=== PATIENT | female | born 1945 | race Caucasian/White ===

== ENCOUNTER 2021-07-26 20:26 | Emergency (ER) | payer MEDICARE ==
[~2021-07-26] VITALS: Ht 154.9 cm; Wt 63.5 kg
[2021-07-26 20:31] VITALS: BP_SYST 160
--- NOTE | 2021-07-26 20:31 | NUR ---
Placed in room 7 . Placed on secured entrance monitor, blood pressure machine and pulse oximeter. To gown for exam. Side rails up. Report given to ELIER BELTRAN.
--- NOTE | 2021-07-26 20:32 | NUR ---
Pt bib BLS with complaint of SOB X4days and dizziness. Pt reports chest pressure but denies pain. Pt took 2 puffs of her albuterol at home. Pt presenting with high blood pressure 173/87 other vital signs stable. Lung sounds rales bilaterally. Pt AAOX4 speaking full sentences resting in gurney with increased work of breathing at 30 RR. Pt attached to monitor resting in gurney.
--- NOTE | 2021-07-26 20:38 | NUR ---
# 20 gauge angiocath placed to LAC. Use of asceptic technique. Opsite placed over site. Blood return noted. Blood for lab drawn from site. Flushed with 10 cc of normal saline. No evidence of infiltration noted. Patient tolerated well.
--- NOTE | 2021-07-26 20:38 | NUR ---
Blood collected and sent to lab.
--- NOTE | 2021-07-26 20:47 | NUR ---
X-ray at bedside.
[2021-07-26 21:06] LABS: BASOPHILS % (AUTO) 0.3 % (0.0-2.0); EOSINOPHILS # (AUTO) 0.8 K/uL (0.0-0.4); EOSINOPHILS % (AUTO) 8.8 % (0.0-4.0); HEMATOCRIT 39.8 % (36-48); HEMOGLOBIN 13.6 g/dL (12.0-16.0); LYMPHOCYTES # (AUTO) 3.3 K/uL (1.0-5.5); LYMPHOCYTES % (AUTO) 38.6 % (20.5-51.5); MEAN CORPUSCULAR HEMOGLOBIN 31 pg (27-31); MEAN CORPUSCULAR HGB CONC 34 % (32-36); MEAN CORPUSCULAR VOLUME 91 fL (79.0-98.0); MONOCYTES # (AUTO) 0.7 K/uL (0.0-1.0); MONOCYTES % (AUTO) 7.9 % (1.7-9.3); NEUTROPHILS # (AUTO) 3.8 K/uL (1.8-7.7); NEUTROPHILS % (AUTO) 44.4 % (40.0-70.0); PLATELET COUNT (AUTO) 339 K/uL (130-430); RED BLOOD CELL COUNT(AUTO) 4.39 MIL/uL (4.2-6.2); RED CELL DISTRIBUTION WIDTH 13.2 % (9.0-15.0); WHITE BLOOD COUNT (AUTO) 8.6 K/uL (4.8-10.8)
[2021-07-26 21:08] LABS: ANION GAP 12 (5-15); CALCIUM 9.6 mg/dL (8.4-11.0); CHLORIDE 98 mmol/L (98-107); CREATININE 0.86 mg/dL (0.55-1.30); GLUCOSE 99 mg/dL (70-99); SODIUM SERUM 135 mmol/L (136-145); UREA NITROGEN, BLOOD 10 mg/dL (8-21)
[2021-07-26 21:22] LABS: ALANINE AMINOTRANSFERASE 22 U/L (12-78); ALBUMIN 3.8 g/dL (3.4-4.8); ASPARTATE AMINOTRANSFERASE 21 U/L (10-37); TOTAL BILIRUBIN 0.5 mg/dL (0.0-1.0)
[2021-07-26 21:27] LABS: POTASSIUM 2.9 mmol/L (3.5-5.1)
[2021-07-26] MEDS ORDERED: POTASSIUM CHLORIDE 20 MEQ/PKT PACKET PO ONE (21:45)
[2021-07-26] MEDS ORDERED: PRED20TA PO (21:50)
[2021-07-26] MEDS ORDERED: ZIT250 PO (21:50)
--- NOTE | 2021-07-26 21:50 | NUR ---
RT at bedside.
[2021-07-26] MEDS ORDERED: predniSONE 20 MG TABLET PO ONE (22:00)
[2021-07-26] MEDS ORDERED: ALBUTEROL SULFATE 0.083% 2.5 MG/3 ML VIAL.NEB INH ONE (22:00)
[2021-07-26] MEDS ORDERED: IPRATROPIUM BROM 0.5 MG/2.5 ML VIAL.NEB (ATROVENT) INH ONE (22:00)
[2021-07-26 22:23] VITALS: BP_SYST 140
--- NOTE | 2021-07-26 22:23 | NUR ---
Patient given written and verbal discharge instructions and verbalizes understanding. ER MD discussed with patient the results and treatment provided. Patient in stable condition. ID arm band removed. IV Removed. Rx of zithromax and prednisone given. Patient educated on pain management and to follow up with PMD. Pain Scale 0/10. Opportunity for questions provided and answered. Medication side effect fact sheet provided.
== END 2021-07-26 22:23 | disposition home or self-care (01) ==
LOC: SED 20:26
DX: J44.1 Chronic obstructive pulmonary disease with (acute) exacerbation (principal); Z79.899 Other long term (current) drug therapy; Z20.822 Contact with and (suspected) exposure to COVID-19
CPT/HCPCS: 36415; 71045; 80053; 83605; 83880; 84484; 85025; 87426; 93005; 94640; 99285; J7512; J7613

== ENCOUNTER 2021-10-28 10:44 | Emergency (ER) | payer OTHER, SELFPAY ==
[~2021-10-28] VITALS: Ht 154.9 cm; Wt 64.4 kg
[~2021-10-28 10:44] MED LIST: PRED20TA PO; ZIT250 PO
[2021-10-28 10:54] VITALS: BP_SYST 137
--- NOTE | 2021-10-28 11:30 | NUR ---
PLACED IN HALLWAY
--- NOTE | 2021-10-28 11:41 | NUR ---
DR. PRIETO EXAMINING PT
[2021-10-28] MEDS ORDERED: POLYTRIM LEFT EYE (11:49)
[2021-10-28] MEDS ORDERED: SULF1TAB48 PO (11:49)
--- NOTE | 2021-10-28 11:56 | NUR ---
Patient given written and verbal discharge instructions and verbalizes understanding. ER MD discussed with patient the results and treatment provided. Patient in stable condition. ID arm band removed. Rx of POLYXIN, SULFATE OPTHOLMIC, BACTRIM DS TABLET given. Patient educated on pain management and to follow up with PMD. Pain Scale 0/10. Opportunity for questions provided and answered. Medication side effect fact sheet provided.
== END 2021-10-28 11:58 | disposition home or self-care (01) ==
LOC: SED 10:44
DX: L03.213 Periorbital cellulitis (principal); H10.9 Unspecified conjunctivitis; J44.9 Chronic obstructive pulmonary disease, unspecified; Z88.1 Allergy status to other antibiotic agents; Z79.899 Other long term (current) drug therapy
CPT/HCPCS: 99283

== ENCOUNTER 2022-03-14 12:46 | Emergency (ER) | payer OTHER ==
[~2022-03-14] VITALS: Ht 152.4 cm; Wt 44.0 kg
[2022-03-14 12:46] VITALS: BP_SYST 175
[~2022-03-14 12:46] MED LIST changes: +POLYTRIM LEFT EYE; +SULF1TAB48 PO
--- NOTE | 2022-03-14 14:01 | NUR ---
Patient to ER bed 02 to gown for evaluation. Side rails up.
--- NOTE | 2022-03-14 14:10 | NUR ---
Assumed care of patient who brought herself to the ED c/o a lump on her right labia she noticed this morning. Lump is painful to touch. Patient states she felt swollen lyph nodes behind her left ear. Patient is A&Ox4, calm and cooperative.
--- NOTE | 2022-03-14 14:18 | NUR ---
Dr Maritnez evaluating patient at bedside
[2022-03-14] MEDS ORDERED: IBUP-1969 PO (14:23)
[2022-03-14] MEDS ORDERED: CEPH-548 PO (14:23)
[2022-03-14 14:41] VITALS: BP_SYST 158
--- NOTE | 2022-03-14 14:42 | NUR ---
Patient given written and verbal discharge instructions and verbalizes understanding. DR.SING SINDI CARLTON discussed with patient the results and treatment provided. Patient in stable condition. ID arm band removed. Rx of KEFLEX, IBUPROFEN given. Patient educated on pain management and to follow up with PMD. Pain Scale 0/10 Opportunity for questions provided and answered. Medication side effect fact sheet provided.
== END 2022-03-14 14:42 | disposition home or self-care (01) ==
LOC: SED 12:46
DX: N73.2 Unspecified parametritis and pelvic cellulitis (principal); L03.90 Cellulitis, unspecified; N90.89 Other specified noninflammatory disorders of vulva and perineum; Z88.1 Allergy status to other antibiotic agents; Z79.899 Other long term (current) drug therapy
CPT/HCPCS: 99284

== ENCOUNTER 2022-08-27 05:11 | Emergency (ER) | payer OTHER ==
[~2022-08-27] VITALS: Ht 152.4 cm; Wt 61.2 kg
[~2022-08-27 05:11] MED LIST changes: +CEPH-548 PO; +IBUP-1969 PO
[2022-08-27 06:10] VITALS: BP_SYST 145
--- NOTE | 2022-08-27 06:17 | NUR ---
Pt ambulaotry from home with c/o abd pain that radiates to her back. Abd pain started s/p eating potato soup x1 day ago. Pt reports dry heaving, but (-) Vomiting. Afebrile. Appears in no acute distress at this time. VSS.
--- NOTE | 2022-08-27 06:32 | NUR ---
MD Kaminski at bedside examining pt.
[2022-08-27] MEDS ORDERED: PANTOPRAZOLE SODIUM 40 MG/VIAL (PROTONIX) IVP ONE (06:45)
[2022-08-27] MEDS ORDERED: PROCHLORPERAZINE EDISYLATE 10 MG/2 ML VIAL IVP ONE (06:45)
[2022-08-27] MEDS ORDERED: ONDANSETRON HCL 4 MG/2 ML VIAL IVP ONE (06:45)
[2022-08-27] MEDS ORDERED: MAG HYDROX/AL HYDROX/SIMETH 30 ML, LIDOCAINE VISCOUS 2% 15ML (PO) 15 ML, DICYCLOMINE HC... PO ONE ×3 (06:45)
[2022-08-27] MEDS ORDERED: MORPHINE 4 MG INJ. 4 MG/ML VIAL IVP ONE ×2 (06:45)
[2022-08-27] MEDS ORDERED: NACL 0.9% 1,000 ML IV ONE (06:45)
--- NOTE | 2022-08-27 06:48 | NUR ---
# 20 gauge angiocath placed to R AC. Use of asceptic technique. Opsite placed over site. Blood return noted. Flushed with 10 cc of normal saline. No evidence of infiltration noted. Patient tolerated well.
[2022-08-27] MEDS ORDERED: DIPHENHYDRAMINE INJ 50 MG/ML VIAL IVP ONE (07:00)
--- NOTE | 2022-08-27 07:30 | NUR ---
RECEIVED PT FROM RUBY MESA. ASSUMED CARE.
--- NOTE | 2022-08-27 07:36 | NUR ---
PT TAKEN TO C/T SCAN.
[2022-08-27 07:49] LABS: BASOPHILS % (AUTO) 0.3 % (0.0-2.0); EOSINOPHILS # (AUTO) 0.1 K/uL (0.0-0.4); EOSINOPHILS % (AUTO) 1.3 % (0.0-4.0); HEMATOCRIT 35.2 % (36-48); LYMPHOCYTES # (AUTO) 1.6 K/uL (1.0-5.5); LYMPHOCYTES % (AUTO) 25.3 % (20.5-51.5); MEAN CORPUSCULAR HEMOGLOBIN 31 pg (27-31); MEAN CORPUSCULAR HGB CONC 34 % (32-36); MEAN CORPUSCULAR VOLUME 91 fL (79.0-98.0); MONOCYTES # (AUTO) 0.4 K/uL (0.0-1.0); MONOCYTES % (AUTO) 7.2 % (1.7-9.3); NEUTROPHILS # (AUTO) 4.1 K/uL (1.8-7.7); NEUTROPHILS % (AUTO) 65.9 % (40.0-70.0); PLATELET COUNT (AUTO) 265 K/uL (130-430); RED BLOOD CELL COUNT(AUTO) 3.88 MIL/uL (4.2-6.2); RED CELL DISTRIBUTION WIDTH 13.8 % (9.0-15.0); WHITE BLOOD COUNT (AUTO) 6.2 K/uL (4.8-10.8)
[2022-08-27 07:55] LABS: ANION GAP 3 (5-15); CALCIUM 8.5 mg/dL (8.4-11.0); CHLORIDE 104 mmol/L (98-107); CREATININE 0.83 mg/dL (0.55-1.30); GLUCOSE 128 mg/dL (70-99); UREA NITROGEN, BLOOD 9 mg/dL (8-21)
[2022-08-27 08:02] LABS: ALANINE AMINOTRANSFERASE 15 U/L (12-78); ALBUMIN 3.3 g/dL (3.4-4.8); ASPARTATE AMINOTRANSFERASE 15 U/L (10-37); LIPASE 91 U/L (73-393); TOTAL BILIRUBIN 0.5 mg/dL (0.0-1.0)
[2022-08-27] MEDS ORDERED: DIPHENHYDRAMINE INJ 50 MG/ML VIAL ONE (08:03)
--- NOTE | 2022-08-27 08:15 | NUR ---
PT BACK FROM C/T SCAN. SCHEDULED MEDS GIVEN INDICATED AND TOLERATED WELL. PT DENIES PAIN.
[2022-08-27] MEDS ORDERED: ONDANSETRON HCL 4 MG/2 ML VIAL ONE (09:01)
--- NOTE | 2022-08-27 09:15 | NUR ---
URINE OBTAINED AND TAKEN LAB.
--- NOTE | 2022-08-27 09:20 | NUR ---
DR. LOPES AT BEDSIDE TO DISCUSS POC.
[2022-08-27 09:22] LABS: ERYTHROCYTE SEDIMENTATION RATE 16 MM/HR (0-20)
[2022-08-27 09:46] LABS: BILIRUBIN,URINE NEGATIVE (NEGATIVE); BLOOD, URINE NEGATIVE (NEGATIVE); CLARITY/URINE CLEAR (CLEAR); COLOR,URINE YELLOW (YELLOW); GLUCOSE,URINE NEGATIVE (NEGATIVE); KETONES,URINE NEGATIVE (NEGATIVE); LEUKOCYTE ESTERASE ,URINE TRACE (NEGATIVE); NITRITE, URINE NEGATIVE (NEGATIVE); PH,URINE 7.5 (5.0-8.0); PROTEIN URINE NEGATIVE (NEGATIVE); UROBILINOGEN,URINE 0.2 (0.2-1.0)
[2022-08-27 10:05] LABS: BACTERIA,URINE None Seen /HPF (None Seen); MUCUS,URINE None Seen /LPF (None Seen); RBC,URINE 0-3 /HPF (0-3); WBC,URINE 0-3 /HPF (0-3)
--- NOTE | 2022-08-27 11:30 | NUR ---
PT'S LEAKING ROGER CATH REMOVED, 10ML REMOVED FROM [facility]. ROGER CATH WAS NOTED TO BE PLACED IN STAT LOCK WRONG CAUSING PARTIAL OCCLUSION, PT ALSO HAD LEG BAG STRAPED PLACED WRONG, PT NOTED WITH BRIGHT RED BLOOD IN ROGER BAG WITH VERY SMALL CLOTS. ALL 3 ISSUE MAY HAVE CAUSED BACK-FLOW WHICH LED TO LEAKING. PT HAD NEW ROGER CATH 16 FR PLACED WITH STERILE TECNNIQUE. ROGER BALLOON INFLATED WITH 10ML NS. STAT LOCK PLACED. PT GIVEN ROGER CATH EDUCATION AND TAUGHT HOW TO PLACE LEG BAG PROPERLY. PT VERBALIZED UNDERSTANDING. DENIES PAIN, TOLERATED PORCEDURE WELL. Addendum: 08/27/22 at 1424 by [email or web address] CLARIFICATION: CHARTING IS ON WRONG PT.
--- NOTE | 2022-08-27 11:50 | NUR ---
DR. LOPES MADE AWARE PT HAS BRIGHT RED BLOOD IN ROGER BAG. DR. LOPES STATED TO IRRIGATE THAT ROGER WITH 300 ML NS AND MONITOR FOR NEW BLOOD. Addendum: 08/27/22 at 1425 by [email or web address] CLARIFICATION: CHARTING ON WRONG PT.
[2022-08-27] MEDS ORDERED: DOXYCYCLINE HYCLATE 100 MG CAPSULE PO ONE (13:00)
[2022-08-27] MEDS ORDERED: metroNIDAZOLE 500 MG TABLET PO ONE (13:00)
--- NOTE | 2022-08-27 13:10 | NUR ---
SCHEDULED MEDS GIVEN ORDERED. PT GIVEN EDUCATION ON MEDICATION ALLERGIC REACTION S/S. PT VERBALIZED UNDERSTANDING.
[2022-08-27] MEDS ORDERED: DOXY100C5 PO (13:42)
[2022-08-27] MEDS ORDERED: PEG4000S7 PO (13:42)
[2022-08-27] MEDS ORDERED: ONDA-8 TL (13:42)
[2022-08-27] MEDS ORDERED: TRAM50TA2 PO (13:42)
[2022-08-27] MEDS ORDERED: METR-154 PO (13:42)
[2022-08-27 13:45] VITALS: BP_SYST 124
--- NOTE | 2022-08-27 13:48 | NUR ---
PT SHOW NO S/S OF ALLERGIC REACTION TO ABT GIVEN. PT WILL BE DISCHARGED.
--- NOTE | 2022-08-27 14:01 | NUR ---
Patient given written and verbal discharge instructions and verbalizes understanding. ER MD discussed with patient the results and treatment provided. Patient in stable condition. ID arm band removed. IV catheter removed intact and dressing applied, no active bleeding. Rx of DOXYCYCLINE, FLAGYL, ZOFRAN, BOWEL PREP, AND TRAMADOL given. Patient educated on pain management and to follow up with PMD. Pain Scale 0/10. Opportunity for questions provided and answered. Medication side effect fact sheet provided.
== END 2022-08-27 13:45 | disposition home or self-care (01) ==
LOC: SED 05:11
DX: K59.00 Constipation, unspecified (principal); K57.92 Diverticulitis of intestine, part unspecified, without perforation or abscess without bleeding; R11.2 Nausea with vomiting, unspecified; J44.9 Chronic obstructive pulmonary disease, unspecified; Z88.1 Allergy status to other antibiotic agents; Z88.6 Allergy status to analgesic agent; Z79.899 Other long term (current) drug therapy
CPT/HCPCS: 99285; 74176; 96374; 96375; 96361; 80053; 81000; 83690; 85025; 85651; 87086; 36415; 76376; 51702; J2001; J1200; J2405; C9113; J0780; J2270; J7030

== ENCOUNTER 2024-08-20 05:20 | Emergency (ER) | payer BC ==
[~2024-08-20] VITALS: Ht 152.4 cm; Wt 64.0 kg
[~2024-08-20 05:20] MED LIST changes: +DOXY100C5 PO; +LIDO1ADH22 TP; +METR-154 PO; +ONDA-8 TL; +PEG4000S7 PO; +TRAM50TA2 PO
[2024-08-20 05:36] VITALS: BP_SYST 146; PULSE 54; RESP 24; TEMP 98.4; O2SAT 98
[2024-08-20] MEDS: HYDROcodone/ACETAMIN 10-325 MG TAB PO ONE (06:24)
[2024-08-20] MEDS ORDERED: KETOROLAC TROMETHAMINE 30 MG VIAL ONE (06:27)
[2024-08-20] MEDS: KETOROLAC TROMETHAMINE 30 MG VIAL IM ONE (06:27)
[2024-08-20] MEDS ORDERED: IBUP-1969 PO (07:34)
[2024-08-20] MEDS ORDERED: TRAM50TA2 PO (07:34)
[2024-08-20 07:47] VITALS: BP_SYST 156; PULSE 58; RESP 22; TEMP 98.1; O2SAT 96
== END 2024-08-20 05:47 | disposition home or self-care (01) ==
LOC: SED 05:20
DX: S63.592A Other specified sprain of left wrist, initial encounter (principal); J44.9 Chronic obstructive pulmonary disease, unspecified; I10 Essential (primary) hypertension; Z88.1 Allergy status to other antibiotic agents; Z88.5 Allergy status to narcotic agent; Z79.52 Long term (current) use of systemic steroids; W01.0XXA Fall on same level from slipping, tripping and stumbling without subsequent striking against object, initial encounter; Y93.01 Activity, walking, marching and hiking; Y92.89 Other specified places as the place of occurrence of the external cause; Y99.8 Other external cause status
CPT/HCPCS: 99283; 73110; 29260; 96372; J1885